=== PATIENT | female | born 1930 | race Caucasian/White ===

== ENCOUNTER 2018-05-29 16:12 | Emergency (ER) | payer OTHER, MEDICARE ==
[2018-05-29 16:25] VITALS: BMI 31.6
--- NOTE | 2018-05-29 16:38 | PDOC ---
History of Present Illness - General Chief Complaint: Revisit,Wound Recheck Stated Complaint: HEMATOMA - History of Present Illness Initial Comments: The patient is an 87F w/ a history of dementia, PD, schizoaffective d/o, BD, chronic DVT, on Xarelto who presents for evaluation of expanding L oviedo hematoma. Per care facility, no reported/observed trauma prior to hematoma. No physical exam abnormality documented prior to today. Patient unable to provide further history 2/2 dementia. Care facility unable to provide further history. 05/29/18 16:38 Past History - Past Medical History Allergies/Adverse Reactions: Allergies Allergy/AdvReac Type Severity Reaction Status Date / Time No Known Allergies Allergy Verified 05/29/18 16:58 COPD: Yes HTN: Yes - Immunization History Td Vaccination: No TDAP Vaccination: No Immunization Up to Date: Yes - Suicide/Smoking/Psychosocial Hx Smoking History: Never smoked Have you smoked in the past 12 months: No Information on smoking cessation initiated: No Hx Alcohol Use: No Drug/Substance Use Hx: No Review of Systems - Review of Systems Able to Perform ROS?: No (UTO 2/2 medical condition) *Physical Exam - Vital Signs Last Vital Signs Temp Pulse Resp BP Pulse Ox 98.3 F 97 H 20 135/75 99 05/29/18 16:20 05/29/18 16:20 05/29/18 16:20 05/29/18 16:20 05/29/18 16:20 - Physical Exam Comments: GENERAL: Awake, not oriented, no acute distress but agitated and cursing at staff HEAD: No signs of trauma, normocephalic, atraumatic EYES: PERRLA, EOMI, sclera anicteric, conjunctiva clear ENT: Hearing grossly normal, nares patent, oropharynx clear without exudates. Moist mucosa LUNGS: No distress, clear to auscultation bilaterally HEART: Regular rate and rhythm, normal S1 and S2, no murmurs appreciated, peripheral pulses normal and equal bilaterally ABDOMEN: Soft, nontender, normoactive bowel sounds. No guarding, no rebound EXTREMITIES: L oviedo hematoma w/o active bleed NEUROLOGICAL: Cranial nerves II through XII grossly intact. Inappropriate speech SKIN: Warm, Dry 05/29/18 16:37 Moderate Sedation - Procedure Monitoring Vital Signs: Procedure Monitoring Vital Signs Temperature 98.3 F 05/29/18 16:20 Pulse Rate 97 H 01/14/19 16:20 Respiratory Rate 20 05/29/18 16:20 Blood Pressure 135/75 05/29/18 16:20 O2 Sat by Pulse Oximetry (%) 99 05/29/18 16:20 ED Treatment Course - LABORATORY CBC & Chemistry Diagram: 05/29/18 17:39 05/29/18 17:39 Medical Decision Making - Medical Decision Making The patient is an 87F w/ a history of dementia, PD, HTN who presents for evaluation of L oviedo hematoma w/o witnessed trauma ED Course Haldol 5mg IM once for agitation 05/29/18 16:37 CMP, CBC L knee and tib/fib XR POCUS L oviedo, no evidence of abscess; appears to be large anterior hematoma, likely subacute 05/29/18 16:59 No EVA No leukocytosis No anemia Lytes wnl XR w/o acute fx Plan for D/C back to [facility] Dx: subacute hematoma w/o underlying fx Dispo: D/C 05/29/18 18:38 *DC/Admit/Observation/Transfer Diagnosis at time of Disposition: Hematoma of left lower extremity Qualifiers: Encounter type: initial encounter Qualified Code(s): S80.12XA - Contusion of left lower leg, initial encounter - Discharge Dispostion Disposition: HOME Condition at time of disposition: Stable Decision to Admit order: No - Referrals Referrals: José Luis Wilcox MD [Primary Care Provider] - - Patient Instructions Printed Discharge Instructions: DI for Hematoma (Bruise) - Post Discharge Activity
[2018-05-29] MEDS ORDERED: HALOPERIDOL LACTATE 5 MG/ML IM ONE (16:57)
[2018-05-29] MEDS ORDERED: HALOPERIDOL LACTATE 5 MG/ML ONE (17:03)
--- NOTE | 2018-05-29 17:28 | PDOC ---
Attending Attestation - Resident Resident Name: AdelaideGuillermo montoya - ED Attending Attestation I have performed the following: I have examined & evaluated the patient, The case was reviewed & discussed with the resident, I agree w/resident's findings & plan - HPI HPI: 05/29/18 17:27 87F w/ a history of dementia, PD, schizoaffective d/o, BD, chronic DVT, on Xarelto who presents for evaluation of expanding L ov[place]o hematoma. minor trauma. history limited due to dementia[facility] 05/29/18 17:28 - Physicial Exam PE: 05/29/18 17:34 NAD, demented, angry. CTAB, RRR. abdomen soft NTND. left oviedo ecchymosis and hematoma, tender. no warmth. wwp. 2+ DP pulses. HORTA x4. no crepitus. - Medical Decision Making 05/29/18 17:35 hpi as documented VS wnl. DDx hematoma, muscle contusion, tib fx. sprain. basic labs and lytes_ Xray tylenol for analgesia. bedside msk sono with moderately sized left anterior oviedo hematoma and mixed echogenicity. compared to contralateral side with normal fibrillations; no fluid collection. no indication to drain. dispo: back to [place], rice ice and compression. tylenol for analgesia
[2018-05-29] MEDS ORDERED: ACETAMINOPHEN 325 MG TABLET (FP) PO ONE (17:37)
[2018-05-29 17:48] LABS: BASO % 0.6 % (0-2.0); EOS % 0.5 % (0-4.5); HEMATOCRIT 34.3 % (32.4-45.2); LYMPH % 8.5 % (8-40); MCH 32.2 pg (25.7-33.7); MEAN CELL VOLUME 91.8 fl (80-96); MEAN PLT VOLUME 9.5 fl (7.5-11.1); MONO % 7.4 % (3.8-10.2); PLATELET COUNT 194 K/MM3 (134-434); RBC 3.74 M/mm3 (3.60-5.2); RDW 13.6 % (11.6-15.6); WHITE BLOOD COUNT 10.6 K/mm3 (4.0-10.0)
[2018-05-29] MEDS ORDERED: ACETAMINOPHEN 325 MG TABLET (FP) ONE (17:51)
[2018-05-29 18:03] LABS: INR 1.11 (0.83-1.09); PROTHROMBIN TIME (PATIENT) 13.1 SEC (9.7-13.0)
[2018-05-29 18:05] LABS: ACTIVATED PTT 29.7 SECONDS (25.2-36.5)
[2018-05-29 18:25] LABS: ANION GAP 7 MMOL/L (8-16); BLOOD UREA NITROGEN 18 mg/dL (7-18); CALCIUM 9.8 mg/dL (8.5-10.1); CHLORIDE 109 mmol/L (98-107); CO2 26 mmol/L (21-32); CREATININE 0.6 mg/dL (0.55-1.3); GLUCOSE,RANDOM 124 mg/dL (74-106); POTASSIUM 4.4 mmol/L (3.5-5.1); SODIUM 142 mmol/L (136-145)
[2018-05-29 19:52] VITALS: BP 150/72; PULSE 94; TEMP 98.2
== END 2018-05-29 20:00 | disposition home or self-care (01) ==
LOC: JER 16:12
PROC: 3E023NZ Introduction of Analgesics, Hypnotics, Sedatives into Muscle, Percutaneous Approach (ICD-10-PCS; principal; 2018-05-29)
DX: S80.11XA Contusion of right lower leg, initial encounter (principal); X58.XXXA Exposure to other specified factors, initial encounter; Y93.89 Activity, other specified; Y92.158 Other place in reform school as the place of occurrence of the external cause; Y99.8 Other external cause status; I10 Essential (primary) hypertension; J44.9 Chronic obstructive pulmonary disease, unspecified; F03.90 Unspecified dementia, unspecified severity, without behavioral disturbance, psychotic disturbance, mood disturbance, and anxiety; F25.9 Schizoaffective disorder, unspecified; F31.9 Bipolar disorder, unspecified; F60.9 Personality disorder, unspecified; Z86.718 Personal history of other venous thrombosis and embolism; Z79.01 Long term (current) use of anticoagulants
CPT/HCPCS: 36415; 73562-TC-LT-FY; 73590-TC-LT-FY; 80048; 85025; 85610; 85730; 96372; 99282-25